=== PATIENT | female | born 1935 | race Caucasian/White ===

== ENCOUNTER → 2016-09-25 | Outpatient (CLI) | payer OTHER ==
[~2016-09-25] MED LIST: ACETAMINOPHEN650 M5 PO; B-100 COMPLEX1 EAC1; CELEBREX 200 M200 MG PO; CENTRUM SILVER1 EAC1; EFFEXOR XR37.5 MG PO; EVISTA; LISINOPRIL-HCT1 EAC1 PO; LISINOPRIL10 MG PO; LISINOPRIL2.5 MG PO; LOVASTAT20; LOVASTATIN40 MG PO; MAGNESIUM250 M1 PO; METHOTREXATE 22.5 MG PO; POTASSIUM; PRESERVISION A1 EAC1; PROTONIX 20 MG20 M1 PO; SANTYL OINTMENT30 G1; UNISOM25 MG; VIBRAMYCIN 100100 MG PO; VICODIN 5-5001 EACH PO
== END ==
LOC: HYPER 07:04
DX: S81.802A Unspecified open wound, left lower leg, initial encounter (principal); Z85.828 Personal history of other malignant neoplasm of skin; Z72.89 Other problems related to lifestyle; W17.89XA Other fall from one level to another, initial encounter; Y93.89 Activity, other specified; Y92.89 Other specified places as the place of occurrence of the external cause; Y99.8 Other external cause status

== ENCOUNTER → 2016-10-12 | Outpatient (CLI) | payer OTHER | LOC: HYPER 07:05 | DX: L97.511 Non-pressure chronic ulcer of other part of right foot limited to breakdown of skin (principal); L97.822 Non-pressure chronic ulcer of other part of left lower leg with fat layer exposed; Z85.828 Personal history of other malignant neoplasm of skin; Z72.89 Other problems related to lifestyle ==